=== PATIENT | female | born 1990 | race Caucasian/White ===

== ENCOUNTER 2019-03-26 08:55 | Emergency (ER) | payer MEDICAID ==
[2019-03-26] MEDS: ERYTHROMYCIN 1 GM OPH OINT BOTH EYES (09:52)
== END 2019-03-26 10:29 | disposition home or self-care (01) ==
LOC: FTE 08:55
DX: H10.33 Unspecified acute conjunctivitis, bilateral (principal); J45.909 Unspecified asthma, uncomplicated
CPT/HCPCS: 99283; Z7610